=== PATIENT | female | born 1985 | race Caucasian/White ===

== ENCOUNTER 2016-06-28 14:11 | Emergency (ER) | payer OTHER ==
[~2016-06-28] VITALS: Ht 157.5 cm; Wt 64.0 kg
[~2016-06-28 14:11] MED LIST: ADVAIR 250/501 DISK IH; ATARAX,VISTARIL50 MG PO; AVENTYL,PAMELOR50 MG PO; AYGESTIN5 MG PO; AZOR 10/20 M1 TABLET PO; BACTRIM,SEPT1 TABLET PO; BENTYL10 MG PO; BUSPAR15 MG PO; BYSTOLIC10 MG PO; CARAFATE1 GM PO; CELEXA20 MG PO; CIPRO500 MG PO; CITALOPRAM HBR20 MG PO; CLEOCIN300 MG PO; CLONAZEPAM0.5 MG PO; CLONAZEPAM1 MG; CLONAZEPAM1 MG PO; CLONIDINE HCL0.1 MG PO; COLACE100 MG PO; CYCLOBENZAPRINE10 MG PO; DIAZEPAM2 MG PO; DILAUDID2 MG PO; EFFEXOR XR37.5 MG PO; FIORICET 50-301 EACH PO; FLEXERIL10 MG PO; FOLIC ACID0.8 MG PO; HYDRALAZINE HCL50 MG PO; HYDROCODON-ACE1 EAC2 PO; HYDROCODON-ACE1 EAC7 PO; IMITREX4 MG/0.5 M SC; IMITREX6 MG/0.53 SC; KEFLEX500 MG PO; KEPPRA1000 MG PO; KEPPRA500 MG PO; KEPPRA750 MG PO; KLONOPIN0.5 M1 PO; LEVETIRACETAM750 MG PO; LEVO-T125 MCG PO; LEVO-T150 MCG PO; LEVOTHYROXINE150 MCG PO; LODINE400 MG PO; LYRICA200 MG PO; MELOXICAM15 MG PO; MEPERIDINE HCL50 MG PO; NAPROXEN PO; NORCO 5/3251 TABLET PO; NORETHINDRONE AC5 MG PO; NORTRIPTYLINE H25 MG PO; ONDANSETRON ODT4 MG PO; ORTHO TRI-CY1 TABLE1 PO; OXYCODONE-APAP1 EAC6; OXYCODONE-APAP1 EACH PO; PAMELOR75 MG PO; PAROXETINE HCL10 MG PO; PERCOCET 5/31 TABLET PO; PERCOCET 7.51 TABLET PO; PRENATAL FORMU1 EAC3 PO; PRENATAL VITAM1 EA11 PO; PROAIR HFA8.5 GM IH; PROTONIX40 MG PO; PROZAC20 MG PO; REGLAN10 MG PO; RIZATRIPTAN10 MG PO; SKELAXIN800 MG PO; SYNTHROID125 MCG PO; SYNTHROID150 MCG PO; SYNTHROID300 MCG PO; TEKTURNA300 MG PO; TOPAMAX100 MG PO; TOPAMAX200 MG PO; TOPAMAX25 MG PO; TOPIRAMATE100 MG PO; TOPIRAMATE25 MG PO; TRAMADOL HCL50 MG PO; TRANSDERM-SCO1 PATCH TD; TRILEPTAL300 MG PO; TYLENOL EXTRA500 MG PO; TYLENOL REGULA325 MG PO; TYLENOL WITH C1 EACH PO; ULTRAM50 MG PO; VALIUM5 MG PO; VICODIN 5-3001 EACH PO; VICODIN,LORT1 TABLET PO; VIMPAT100 MG PO; VIMPAT150 MG PO; VIMPAT200 MG PO; ZOFRAN ODT4 MG PO; ZOFRAN ODT8 MG PO; ZOFRAN4 MG PO
[2016-06-28 15:34] LABS: ADD MIUA? YES; BILIRUBIN NEGATIVE; BLOOD NEGATIVE; COLOR YELLOW ((YELLOW)); GLUCOSE (STRIP) NEGATIVE; KETONES TRACE; LEUKOCYTES NEGATIVE; NITRITE POSITIVE; PH, URINE 5.5 (5-8); PROTEIN (STRIP) 30; SPECIFIC GRAVITY 1.039 (1.000-1.030); UROBILINOGEN 0.2 MG/DL (0.2-1.0)
[2016-06-28 15:43] LABS: AMPHETAMINE NEGATIVE (500 ng/mL); BARBITURATES NEGATIVE (200 ng/mL); BENZODIAZEPINES PRESUMPTIVE POSITIVE (150 ng/mL); COCAINE NEGATIVE (150 ng/mL); INTERNAL CONTROLS VALID? YES; METHADONE NEGATIVE (200 ng/mL); METHAMPHETAMINE NEGATIVE (500 ng/mL); OPIATES (MORPHINE) NEGATIVE (100 ng/mL); OXYCODONE NEGATIVE (100 ng/mL); PHENCYCLIDINE NEGATIVE (25 ng/mL); PROPOXYPHENE NEGATIVE (300 ng/mL); THC CANNABINOIDS NEGATIVE (50 ng/mL); TRICYCLIC ANTIDEPRESSANTS PRESUMPTIVE POSITIVE (300 ng/mL)
[2016-06-28 15:44] LABS: ADD MEDTOX COMMENT Y
[2016-06-28 16:02] LABS: EOSINOPHIL (%) 0.3 % (0-5); HEMATOCRIT 33.4 % (36.0-46.0); IMMATURE GRANULOCYTE (%) 0.2 % (0.0-0.7); IMMATURE GRANULOCYTE COUNT 0.1 K/uL; MCH 27.5 PG (29.0-34.0); MCHC 33.2 G/DL (30.0-36.0); MCV 82.7 FL (83-99); MONOCYTE (%) 7.3 % (3-12); MONOCYTE COUNT 0.5 K/uL (0-0.8); NEUTROPHIL (%) 76.5 % (45-76); RBC DIS.WIDTH-CV 14.7 % (11.8-14.6); RBC DIS.WIDTH-SD 43.1 % (39-53); RED BLOOD COUNT 4.04 M/uL (3.80-5.20)
[2016-06-28 16:04] LABS: WHITE BLOOD COUNT 6.5 K/uL (4.1-10.2)
[2016-06-28 16:06] LABS: BACTERIA 1+; EPITHELIAL CELLS 2+; RED BLOOD CELLS NONE SEEN /HPF (0-5); UCUL ADDED? NO; WHITE BLOOD CELLS RARE /HPF (0-5)
[2016-06-28 16:07] LABS: CASTS NONE SEEN /LPF; CRYSTALS NONE SEEN; MUCUS 2+
[2016-06-28 16:09] LABS: CHLORIDE 103 mEq/L (99-109); POTASSIUM 4.2 mEq/L (3.7-5.4); SODIUM 138 mEq/L (136-147)
[2016-06-28 16:12] LABS: GLUCOSE 102 mg/dL (70-99)
[2016-06-28 16:13] LABS: ANION GAP 11 MEQ/L (2-14); TOTAL BILIRUBIN 0.3 mg/dL (0.0-1.0)
[2016-06-28 16:14] LABS: SERUM ETHYL ALCOHOL < 10 mg/dL
[2016-06-28 16:15] LABS: ALKALINE PHOSPHATASE 63 IU/L (3-129); GFR ESTIMATE (CALCULATED) > 59 mL/min/
[2016-06-28 16:16] LABS: UREA NITROGEN (BUN) 24 mg/dL (9-23)
[2016-06-28 16:18] LABS: CREATINE KINASE 47 IU/L (1-294); TOTAL CK 47 IU/L (1-294)
[2016-06-28 16:26] LABS: QUANTITATIVE HCG < 4.0 MIU/ML
[2016-06-28 16:27] LABS: BENZODIAZEPINES QUANT VALUE 0 NG/ML
[2016-06-28 16:31] LABS: BENZODIAZEPINES, URINE SCREEN Negative (200 ng/mL)
[2016-06-28 17:03] LABS: PLAT.SUFFICIENCY ADEQUATE; USER ID BW1
[2016-06-28 17:04] LABS: MEAN PLAT.VOLUME 9.6 uM^3 (9.5-12.4)
[2016-06-28 17:05] VITALS: BP 120/91
[2016-06-28 18:00] LABS: PLATELET COUNT 310 K/uL (156-360)
== END 2016-06-28 17:05 | disposition left against medical advice (07) ==
LOC: EME 14:11
PROVIDERS: Emergency Medicine
DX: G40.909 Epilepsy, unspecified, not intractable, without status epilepticus (principal); Z88.6 Allergy status to analgesic agent
CPT/HCPCS: 80053; 81003; 82550; 82553; 84702; 84999; 85025; 93005; 99281; 99285; G0480; J2405

== ENCOUNTER 2016-09-17 16:29 | Emergency (ER) | payer BC ==
[~2016-09-17] VITALS: Ht 157.5 cm; Wt 56.8 kg
[2016-09-17 16:53] LABS: HEMATOCRIT 40.6 % (36.0-46.0); MCH 28.8 PG (29.0-34.0); MCHC 33.3 G/DL (30.0-36.0); MCV 86.8 FL (83-99); MEAN PLAT.VOLUME 9.8 uM^3 (9.5-12.4); PLATELET COUNT 443 K/uL (156-360); RBC DIS.WIDTH-CV 15.2 % (11.8-14.6); RBC DIS.WIDTH-SD 48.9 % (39-53); RED BLOOD COUNT 4.68 M/uL (3.80-5.20); WHITE BLOOD COUNT 7.7 K/uL (4.1-10.2)
[2016-09-17 17:04] LABS: CHLORIDE 102 mEq/L (99-109); POTASSIUM 4.2 mEq/L (3.7-5.4); SODIUM 135 mEq/L (136-147)
[2016-09-17 17:06] LABS: GLUCOSE 96 mg/dL (70-99)
[2016-09-17 17:07] LABS: ANION GAP 11 MEQ/L (2-14)
[2016-09-17 17:09] LABS: GFR ESTIMATE (CALCULATED) > 59 mL/min/
[2016-09-17 17:10] LABS: UREA NITROGEN (BUN) 25 mg/dL (9-23)
[2016-09-17 17:45] LABS: CREATINE KINASE 34 IU/L (1-294)
[2016-09-17 17:53] LABS: QUANTITATIVE HCG < 4.0 MIU/ML
[2016-09-17 20:56] LABS: ADD MIUA? YES; BILIRUBIN NEGATIVE; BLOOD NEGATIVE; COLOR YELLOW ((YELLOW)); GLUCOSE (STRIP) NEGATIVE; KETONES 5; LEUKOCYTES MODERATE; NITRITE POSITIVE; PROTEIN (STRIP) 100; SPECIFIC GRAVITY 1.029 (1.000-1.030)
[2016-09-17 21:05] LABS: AMPHETAMINE NEGATIVE (500 ng/mL); BARBITURATES NEGATIVE (200 ng/mL); BENZODIAZEPINES PRESUMPTIVE POSITIVE (150 ng/mL); COCAINE NEGATIVE (150 ng/mL); INTERNAL CONTROLS VALID? YES; METHADONE PRESUMPTIVE POSITIVE (200 ng/mL); METHAMPHETAMINE NEGATIVE (500 ng/mL); OPIATES (MORPHINE) NEGATIVE (100 ng/mL); OXYCODONE NEGATIVE (100 ng/mL); PHENCYCLIDINE NEGATIVE (25 ng/mL); PROPOXYPHENE NEGATIVE (300 ng/mL); THC CANNABINOIDS NEGATIVE (50 ng/mL); TRICYCLIC ANTIDEPRESSANTS NEGATIVE (300 ng/mL)
[2016-09-17 21:06] LABS: ADD MEDTOX COMMENT Y
[2016-09-17 21:11] LABS: BACTERIA 3+ /HPF; CALCIUM OXALATE CRYSTALS 3+ /HPF; EPITHELIAL CELLS 1+ /HPF; MUCUS 3+ /LPF; UCUL ADDED? YES; WHITE BLOOD CELLS 20-30 /HPF (0-5)
[2016-09-17 21:17] VITALS: BP 118/89
[2016-09-17] MEDS ORDERED: MACROBID100 MG PO (21:17)
[2016-09-17 21:33] LABS: BENZODIAZEPINES QUANT VALUE 0 NG/ML
[2016-09-17 21:34] LABS: BENZODIAZEPINES, URINE SCREEN Negative (200 ng/mL)
== END 2016-09-17 21:18 | disposition left against medical advice (07) ==
LOC: EME 16:29
DX: G40.909 Epilepsy, unspecified, not intractable, without status epilepticus (principal); N30.00 Acute cystitis without hematuria; J45.909 Unspecified asthma, uncomplicated; I10 Essential (primary) hypertension; K21.9 Gastro-esophageal reflux disease without esophagitis; E03.9 Hypothyroidism, unspecified
CPT/HCPCS: 70450; 72040; 72070; 80048; 81003; 82550; 84702; 84999; 85027; 87077; 87086; 87186; 90839; 99281; 99285; J2060; J2405; J7030

== ENCOUNTER 2016-09-29 09:11 | Emergency (ER) | payer SELFPAY ==
[~2016-09-29] VITALS: Ht 160 cm; Wt 52.0 kg
[~2016-09-29 09:11] MED LIST changes: +MACROBID100 MG PO
[2016-09-29 10:13] LABS: EOSINOPHIL (%) 1.2 % (0-5); EOSINOPHIL COUNT 0.1 K/uL (0-0.3); HEMATOCRIT 35.8 % (36.0-46.0); IMMATURE GRANULOCYTE (%) 0.2 % (0.0-0.7); INSTRUMENT ABS NEUTROPHIL CT 2.1 K/uL; LYMPHOCYTE COUNT 1.6 K/uL (1.0-2.8); MCH 29.3 PG (29.0-34.0); MCHC 34.1 G/DL (30.0-36.0); MCV 85.9 FL (83-99); MONOCYTE (%) 8.5 % (3-12); MONOCYTE COUNT 0.4 K/uL (0-0.8); NEUTROPHIL (%) 50.9 % (45-76); NEUTROPHIL COUNT 2.1 K/uL (1.8-6.4); RBC DIS.WIDTH-CV 14.3 % (11.8-14.6); RBC DIS.WIDTH-SD 44.9 % (39-53); RED BLOOD COUNT 4.17 M/uL (3.80-5.20)
[2016-09-29 10:14] LABS: WHITE BLOOD COUNT 4.1 K/uL (4.1-10.2)
[2016-09-29 10:17] LABS: CHLORIDE 101 mEq/L (99-109); POTASSIUM 3.9 mEq/L (3.7-5.4); SODIUM 136 mEq/L (136-147)
[2016-09-29 10:19] LABS: GLUCOSE 86 mg/dL (70-99)
[2016-09-29 10:20] LABS: ANION GAP 11 MEQ/L (2-14)
[2016-09-29 10:21] LABS: TOTAL BILIRUBIN 0.8 mg/dL (0.0-1.0)
[2016-09-29 10:22] LABS: ALKALINE PHOSPHATASE 75 IU/L (3-129)
[2016-09-29 10:23] LABS: GFR ESTIMATE (CALCULATED) > 59 mL/min/
[2016-09-29 10:24] LABS: UREA NITROGEN (BUN) 26 mg/dL (9-23)
[2016-09-29 10:35] LABS: QUANTITATIVE HCG < 4.0 MIU/ML
[2016-09-29 11:44] LABS: MEAN PLAT.VOLUME 9.6 uM^3 (9.5-12.4); PLAT.SUFFICIENCY ADEQUATE
[2016-09-29 11:45] LABS: PLATELET COUNT 241 K/uL (156-360)
[2016-09-29] MEDS ORDERED: CITRATE OF MAG296 ML PO (13:10)
[2016-09-29] MEDS ORDERED: TYLENOL WITH C1 EACH PO (13:10)
[2016-09-29 13:14] LABS: ADD MIUA? YES; BILIRUBIN NEGATIVE; BLOOD NEGATIVE; COLOR YELLOW ((YELLOW)); GLUCOSE (STRIP) NEGATIVE; KETONES 20; LEUKOCYTES NEGATIVE; NITRITE NEGATIVE; PROTEIN (STRIP) 30
[2016-09-29 13:21] LABS: BACTERIA RARE /HPF; CALCIUM OXALATE CRYSTALS 1+ /HPF; EPITHELIAL CELLS 2+ /HPF; MUCUS TRACE /LPF; RED BLOOD CELLS 15-20 /HPF (0-5); UCUL ADDED? NO
[2016-09-29 13:27] VITALS: BP 110/80
[2016-09-29 13:30] LABS: SPECIFIC GRAVITY 1.078 (1.000-1.030)
[2016-09-30] MEDS ORDERED: TYLENOL EXTRA500 MG PO (07:50)
== END 2016-09-29 13:46 | disposition home or self-care (01) ==
LOC: EME 09:11
PROVIDERS: Physician Assistant
DX: K59.00 Constipation, unspecified (principal); R10.9 Unspecified abdominal pain; F32.9 Major depressive disorder, single episode, unspecified; J45.909 Unspecified asthma, uncomplicated; I10 Essential (primary) hypertension; K21.9 Gastro-esophageal reflux disease without esophagitis; R56.9 Unspecified convulsions; E03.9 Hypothyroidism, unspecified
CPT/HCPCS: 74177; 80053; 81003; 84702; 85025; 90839; 99281; 99285; J2270; J3010; J7120

== ENCOUNTER 2016-09-30 06:24 | Emergency (ER) | payer SELFPAY ==
[~2016-09-30] VITALS: Ht 160 cm; Wt 53.8 kg
[~2016-09-30 06:24] MED LIST changes: +CITRATE OF MAG296 ML PO
[2016-09-30] MEDS ORDERED: TYLENOL EXTRA500 MG PO (07:50)
[2016-09-30 10:49] VITALS: BP 133/87
== END 2016-09-30 10:51 | disposition home or self-care (01) ==
LOC: EME 06:24
DX: F41.9 Anxiety disorder, unspecified (principal); F33.1 Major depressive disorder, recurrent, moderate
CPT/HCPCS: 90839; 99281; 99283

== ENCOUNTER 2016-10-04 09:39 | Inpatient (IN) | payer OTHER ==
[~2016-10-04] VITALS: Ht 157.5 cm; Wt 48.9 kg
[2016-10-04 11:43] LABS: HEMATOCRIT 36.4 % (36.0-46.0); MCH 29.4 PG (29.0-34.0); MCHC 33.5 G/DL (30.0-36.0); MCV 87.7 FL (83-99); MEAN PLAT.VOLUME 9.5 uM^3 (9.5-12.4); PLATELET COUNT 324 K/uL (156-360); RBC DIS.WIDTH-CV 14.1 % (11.8-14.6); RBC DIS.WIDTH-SD 45.7 % (39-53); RED BLOOD COUNT 4.15 M/uL (3.80-5.20); WHITE BLOOD COUNT 7.7 K/uL (4.1-10.2)
[2016-10-04 11:56] LABS: CHLORIDE 109 mEq/L (99-109); POTASSIUM 3.7 mEq/L (3.7-5.4); SODIUM 138 mEq/L (136-147)
[2016-10-04 11:57] LABS: GLUCOSE 73 mg/dL (70-99)
[2016-10-04 11:59] LABS: ANION GAP 10 MEQ/L (2-14)
[2016-10-04 12:01] LABS: GFR ESTIMATE (CALCULATED) > 59 mL/min/; SERUM ETHYL ALCOHOL < 10 mg/dL
[2016-10-04 12:03] LABS: UREA NITROGEN (BUN) 30 mg/dL (9-23)
[2016-10-04 12:04] LABS: SALICYLATE < 5.0 MG/DL (15-30)
[2016-10-04 12:12] LABS: QUANTITATIVE HCG < 4.0 MIU/ML
[2016-10-04] MEDS ORDERED: ZOFRAN ODT4 MG PO (12:13)
[2016-10-04] MEDS ORDERED: HYDROXYZINE HCL50 MG PO (12:13)
[2016-10-04] MEDS ORDERED: SYNTHROID150 MCG PO (12:13)
[2016-10-04] MEDS ORDERED: PROZAC40 MG PO (12:13)
[2016-10-04] MEDS ORDERED: TRAMADOL HCL50 MG PO (12:14)
[2016-10-04] MEDS ORDERED: CYANOCOBALAM1000 MCG PO (12:14)
[2016-10-04] MEDS ORDERED: CALCIUM 500 MG1 EACH PO (12:14)
[2016-10-04] MEDS ORDERED: NASONEX17 GM BOTH NARES (12:14)
[2016-10-04 14:38] VITALS: BP 127/85
[2016-10-04 14:43] VITALS: BP 127/85
[2016-10-05 07:45] VITALS: BP 116/80
[2016-10-05 15:24] VITALS: BP 119/91
[2016-10-06 07:34] VITALS: BP 113/82
[2016-10-06 15:10] LABS: AMPHETAMINES QUANT VALUE 0 NG/ML; BARBITUATES QUANT VALUE 0 NG/ML; BENZODIAZEPINES QUANT VALUE 0 NG/ML; BENZODIAZEPINES, URINE SCREEN Negative (200 ng/mL); MARIJUANA QUANT VALUE 0 NG/ML; OPIATES QUANTITATIVE VALUE 0 NG/ML; PHENCYCLIDINE QUANT VALUE 0 NG/ML
[2016-10-06 16:08] VITALS: BP 112/79
[2016-10-07 08:06] VITALS: BP 101/76
[2016-10-07 16:15] VITALS: BP 123/89
[2016-10-08 07:54] VITALS: BP 1015/75
[2016-10-08 15:49] VITALS: BP 100/77
[2016-10-09 07:40] VITALS: BP 104/58
[2016-10-09 15:28] VITALS: BP 104/72
[2016-10-10 07:45] VITALS: BP 102/62
[2016-10-10] MEDS ORDERED: EFFEXOR50 MG PO (11:34)
[2016-10-10] MEDS ORDERED: METHYLPHENIDATE5 MG PO (11:34)
[2016-10-10] MEDS ORDERED: HYDROXYZINE PAM25 MG PO (11:34)
[2016-10-10] MEDS ORDERED: LEVETIRACETAM500 MG PO (11:34)
[2016-10-10] MEDS ORDERED: SYNTHROID175 MCG PO (11:34)
[2016-10-10] MEDS ORDERED: TRAMADOL HCL50 MG PO (11:34)
[2016-10-10] MEDS ORDERED: ARIPIPRAZOLE5 MG PO (11:34)
== END 2016-10-10 14:27 | disposition home or self-care (01) | DRG 885 ==
LOC: EME 09:39 → 1WEST 11:33 → EDOF 11:33 → 1WEST 14:27
PROVIDERS: Psychiatry & Neurology Psychiatry
DX: F33.2 Major depressive disorder, recurrent severe without psychotic features (principal); R45.851 Suicidal ideations; J45.909 Unspecified asthma, uncomplicated; G89.29 Other chronic pain; I10 Essential (primary) hypertension; E03.9 Hypothyroidism, unspecified; G43.909 Migraine, unspecified, not intractable, without status migrainosus; K21.9 Gastro-esophageal reflux disease without esophagitis; G47.00 Insomnia, unspecified; G40.909 Epilepsy, unspecified, not intractable, without status epilepticus; F41.9 Anxiety disorder, unspecified; N80.9 Endometriosis, unspecified; N83.209 Unspecified ovarian cyst, unspecified side; Z91.5 Personal history of self-harm; Z91.14 Patient's other noncompliance with medication regimen; Z98.84 Bariatric surgery status; Z81.8 Family history of other mental and behavioral disorders
CPT/HCPCS: 80048; 80306 90; 82607; 82746; 84439; 84443; 84702; 85027; 90839; 97150 GO; 97165 GO; 99281; 99285; G0480; Q0177

== ENCOUNTER 2016-10-14 07:14 | Emergency (ER) | payer SELFPAY ==
[~2016-10-14] VITALS: Ht 157.5 cm; Wt 50.3 kg
[~2016-10-14 07:14] MED LIST changes: +ARIPIPRAZOLE5 MG PO; +CALCIUM 500 MG1 EACH PO; +CYANOCOBALAM1000 MCG PO; +EFFEXOR50 MG PO; +HYDROXYZINE HCL50 MG PO; +HYDROXYZINE PAM25 MG PO; +LEVETIRACETAM500 MG PO; +METHYLPHENIDATE5 MG PO; +NASONEX17 GM BOTH NARES; +PROZAC40 MG PO; +SYNTHROID175 MCG PO
[2016-10-14 08:05] LABS: HEMATOCRIT 33.8 % (36.0-46.0); MCH 29.9 PG (29.0-34.0); MCHC 33.7 G/DL (30.0-36.0); MCV 88.7 FL (83-99); RBC DIS.WIDTH-CV 13.6 % (11.8-14.6); RBC DIS.WIDTH-SD 43.7 % (39-53); RED BLOOD COUNT 3.81 M/uL (3.80-5.20); WHITE BLOOD COUNT 6.3 K/uL (4.1-10.2)
[2016-10-14 08:12] LABS: CHLORIDE 112 mEq/L (99-109); POTASSIUM 4.1 mEq/L (3.7-5.4); SODIUM 143 mEq/L (136-147)
[2016-10-14 08:14] LABS: GLUCOSE 82 mg/dL (70-99)
[2016-10-14 08:16] LABS: ANION GAP 9 MEQ/L (2-14); TOTAL BILIRUBIN 0.4 mg/dL (0.0-1.0)
[2016-10-14 08:18] LABS: ALKALINE PHOSPHATASE 54 IU/L (3-129); GFR ESTIMATE (CALCULATED) > 59 mL/min/
[2016-10-14 08:19] LABS: UREA NITROGEN (BUN) 21 mg/dL (9-23)
[2016-10-14 08:21] LABS: CREATINE KINASE 52 IU/L (1-294); TOTAL CK 52 IU/L (1-294)
[2016-10-14 08:27] LABS: QUANTITATIVE HCG < 4.0 MIU/ML
[2016-10-14 08:28] LABS: CK-MB 0.5 ng/mL (0.0-4.9)
[2016-10-14 09:24] LABS: MEAN PLAT.VOLUME 9.5 uM^3 (9.5-12.4)
[2016-10-14 09:26] LABS: PLATELET COUNT 204 K/uL (156-360)
[2016-10-14 10:00] LABS: ADD MIUA? YES; BILIRUBIN NEGATIVE; BLOOD NEGATIVE; COLOR YELLOW ((YELLOW)); GLUCOSE (STRIP) NEGATIVE; KETONES NEGATIVE; LEUKOCYTES TRACE; NITRITE NEGATIVE; PROTEIN (STRIP) 30; SPECIFIC GRAVITY 1.023 (1.000-1.030); UROBILINOGEN 0.2 MG/DL (0.2-1.0)
[2016-10-14 10:09] LABS: BACTERIA RARE /HPF; CALCIUM OXALATE CRYSTALS 4+ /HPF; EPITHELIAL CELLS RARE /HPF; MUCUS TRACE /LPF; RED BLOOD CELLS 15-20 /HPF (0-5)
[2016-10-14 10:37] LABS: ADD MEDTOX COMMENT Y; AMPHETAMINE NEGATIVE (500 ng/mL); BARBITURATES NEGATIVE (200 ng/mL); BENZODIAZEPINES PRESUMPTIVE POSITIVE (150 ng/mL); COCAINE NEGATIVE (150 ng/mL); INTERNAL CONTROLS VALID? YES; METHADONE NEGATIVE (200 ng/mL); METHAMPHETAMINE NEGATIVE (500 ng/mL); OPIATES (MORPHINE) NEGATIVE (100 ng/mL); OXYCODONE NEGATIVE (100 ng/mL); PHENCYCLIDINE NEGATIVE (25 ng/mL); PROPOXYPHENE NEGATIVE (300 ng/mL); THC CANNABINOIDS NEGATIVE (50 ng/mL); TRICYCLIC ANTIDEPRESSANTS NEGATIVE (300 ng/mL)
[2016-10-14] MEDS ORDERED: MACROBID100 MG PO (10:41)
[2016-10-14] MEDS ORDERED: ZOFRAN ODT4 MG PO (10:53)
[2016-10-14 11:31] VITALS: BP 114/83
[2016-10-14 11:41] LABS: BENZODIAZEPINES, URINE SCREEN POSITIVE (200 ng/mL)
[2016-10-14] MEDS ORDERED: ULTRAM50 MG PO (22:03)
[2016-10-15] MEDS ORDERED: ABILIFY5 MG PO (12:13)
[2016-10-15] MEDS ORDERED: LEVOTHYROXINE150 MCG PO (12:14)
[2016-10-15] MEDS ORDERED: RITALIN5 MG PO (12:16)
== END 2016-10-14 11:33 | disposition home or self-care (01) ==
LOC: EME → EDBD 07:14 → EME 07:14
PROVIDERS: Nurse Practitioner Family
DX: G40.901 Epilepsy, unspecified, not intractable, with status epilepticus (principal); N39.0 Urinary tract infection, site not specified; Y09 Assault by unspecified means; R51 Headache; M54.9 Dorsalgia, unspecified; F41.9 Anxiety disorder, unspecified; Z98.84 Bariatric surgery status; Z86.19 Personal history of other infectious and parasitic diseases; Z91.128 Patient's intentional underdosing of medication regimen for other reason; I10 Essential (primary) hypertension; G89.29 Other chronic pain; J45.909 Unspecified asthma, uncomplicated
CPT/HCPCS: 70450; 80053; 81003; 82550; 82553; 84443; 84702; 84702 90; 84999; 85027; 87086; 90832; 99281; 99285; G0480; J2060

== ENCOUNTER 2016-10-14 18:35 | Emergency (ER) | payer SELFPAY ==
[~2016-10-14] VITALS: Ht 157.5 cm; Wt 50.2 kg
[2016-10-14] MEDS ORDERED: ULTRAM50 MG PO (22:03)
[2016-10-14 22:58] LABS: HEMATOCRIT 31.9 % (36.0-46.0); MCH 29.5 PG (29.0-34.0); MCHC 32.6 G/DL (30.0-36.0); MCV 90.6 FL (83-99); MEAN PLAT.VOLUME 9.2 uM^3 (9.5-12.4); PLATELET COUNT 197 K/uL (156-360); RBC DIS.WIDTH-CV 13.8 % (11.8-14.6); RBC DIS.WIDTH-SD 45.4 % (39-53); RED BLOOD COUNT 3.52 M/uL (3.80-5.20); WHITE BLOOD COUNT 7.7 K/uL (4.1-10.2)
[2016-10-14 23:05] LABS: CHLORIDE 114 mEq/L (99-109); POTASSIUM 3.6 mEq/L (3.7-5.4); SODIUM 145 mEq/L (136-147)
[2016-10-14 23:08] LABS: GLUCOSE 83 mg/dL (70-99)
[2016-10-14 23:09] LABS: ANION GAP 8 MEQ/L (2-14)
[2016-10-14 23:10] LABS: TOTAL BILIRUBIN 0.4 mg/dL (0.0-1.0)
[2016-10-14 23:11] LABS: ALKALINE PHOSPHATASE 51 IU/L (3-129); SERUM ETHYL ALCOHOL < 10 mg/dL
[2016-10-14 23:12] LABS: GFR ESTIMATE (CALCULATED) > 59 mL/min/
[2016-10-14 23:13] LABS: UREA NITROGEN (BUN) 19 mg/dL (9-23)
[2016-10-15 10:09] LABS: ADD MIUA? YES; BILIRUBIN NEGATIVE; BLOOD NEGATIVE; COLOR YELLOW ((YELLOW)); GLUCOSE (STRIP) NEGATIVE; KETONES NEGATIVE; LEUKOCYTES TRACE; NITRITE NEGATIVE; PROTEIN (STRIP) NEGATIVE; SPECIFIC GRAVITY 1.016 (1.000-1.030); UROBILINOGEN 0.2 MG/DL (0.2-1.0)
[2016-10-15 10:20] LABS: AMPHETAMINE NEGATIVE (500 ng/mL); COCAINE NEGATIVE (150 ng/mL); METHAMPHETAMINE NEGATIVE (500 ng/mL); OPIATES (MORPHINE) NEGATIVE (100 ng/mL); PHENCYCLIDINE NEGATIVE (25 ng/mL); THC CANNABINOIDS NEGATIVE (50 ng/mL)
[2016-10-15 10:21] LABS: ADD MEDTOX COMMENT Y; BARBITURATES NEGATIVE (200 ng/mL); BENZODIAZEPINES PRESUMPTIVE POSITIVE (150 ng/mL); INTERNAL CONTROLS VALID? YES; METHADONE NEGATIVE (200 ng/mL); OXYCODONE NEGATIVE (100 ng/mL); PROPOXYPHENE NEGATIVE (300 ng/mL); TRICYCLIC ANTIDEPRESSANTS NEGATIVE (300 ng/mL)
[2016-10-15 10:28] LABS: BACTERIA RARE /HPF; CALCIUM OXALATE CRYSTALS 4+ /HPF; EPITHELIAL CELLS RARE /HPF; MUCUS 4+ /LPF; RED BLOOD CELLS TNTC /HPF (0-5); WHITE BLOOD CELLS 20-30 /HPF (0-5)
[2016-10-15 10:57] LABS: BENZODIAZEPINES, URINE SCREEN POSITIVE (200 ng/mL)
[2016-10-15] MEDS ORDERED: ABILIFY5 MG PO (12:13)
[2016-10-15] MEDS ORDERED: LEVOTHYROXINE150 MCG PO (12:14)
[2016-10-15] MEDS ORDERED: RITALIN5 MG PO (12:16)
[2016-10-15 21:45] VITALS: BP 139/90
== END 2016-10-15 21:48 ==
LOC: EME 18:35 → EDOF 10-15 12:56 → EME 10-15 12:56
PROVIDERS: Emergency Medicine
DX: S30.0XXA Contusion of lower back and pelvis, initial encounter (principal); F19.10 Other psychoactive substance abuse, uncomplicated; R45.851 Suicidal ideations; Y04.8XXA Assault by other bodily force, initial encounter; Y07.12 Biological mother, perpetrator of maltreatment and neglect; Y92.89 Other specified places as the place of occurrence of the external cause; F31.9 Bipolar disorder, unspecified; J45.909 Unspecified asthma, uncomplicated; I10 Essential (primary) hypertension; G40.909 Epilepsy, unspecified, not intractable, without status epilepticus; Z98.84 Bariatric surgery status; Z88.6 Allergy status to analgesic agent; Z88.5 Allergy status to narcotic agent; Z91.030 Bee allergy status
CPT/HCPCS: 72100; 80053; 81003; 84999; 85027; 90837; 99281; 99285; G0480; J1630; J7030; Q0177

== ENCOUNTER 2016-10-23 09:23 | Inpatient (IN) | payer OTHER ==
[~2016-10-23] VITALS: Ht 160 cm; Wt 52.1 kg
[~2016-10-23 09:23] MED LIST changes: +ABILIFY5 MG PO; +RITALIN5 MG PO
[2016-10-23] MEDS ORDERED: WELLBUTRIN XL150 MG PO (11:26)
[2016-10-23 11:32] LABS: ADD MIUA? YES; BILIRUBIN NEGATIVE; BLOOD NEGATIVE; COLOR AMBER ((YELLOW)); GLUCOSE (STRIP) >=500; KETONES NEGATIVE; LEUKOCYTES NEGATIVE; NITRITE NEGATIVE; PROTEIN (STRIP) NEGATIVE; UROBILINOGEN 0.2 MG/DL (0.2-1.0)
[2016-10-23 11:49] LABS: AMPHETAMINE NEGATIVE (500 ng/mL); BARBITURATES NEGATIVE (200 ng/mL); BENZODIAZEPINES NEGATIVE (150 ng/mL); COCAINE NEGATIVE (150 ng/mL); INTERNAL CONTROLS VALID? YES; METHADONE NEGATIVE (200 ng/mL); METHAMPHETAMINE NEGATIVE (500 ng/mL); OPIATES (MORPHINE) NEGATIVE (100 ng/mL); OXYCODONE NEGATIVE (100 ng/mL); PHENCYCLIDINE NEGATIVE (25 ng/mL); PROPOXYPHENE NEGATIVE (300 ng/mL); THC CANNABINOIDS NEGATIVE (50 ng/mL); TRICYCLIC ANTIDEPRESSANTS NEGATIVE (300 ng/mL)
[2016-10-23 11:53] LABS: BACTERIA RARE /HPF; CALCIUM OXALATE CRYSTALS 2+ /HPF; EPITHELIAL CELLS 1+ /HPF; MUCUS TRACE /LPF; UNCLASSIFIED CRYSTALS 4+ /HPF; WHITE BLOOD CELLS 0-5 /HPF (0-5)
[2016-10-23 11:56] LABS: HEMATOCRIT 34.4 % (36.0-46.0); MCH 30.2 PG (29.0-34.0); MCV 88.9 FL (83-99); MEAN PLAT.VOLUME 9.3 uM^3 (9.5-12.4); PLATELET COUNT 241 K/uL (156-360); RBC DIS.WIDTH-CV 12.9 % (11.8-14.6); RBC DIS.WIDTH-SD 41.9 % (39-53); RED BLOOD COUNT 3.87 M/uL (3.80-5.20)
[2016-10-23 11:57] LABS: WHITE BLOOD COUNT 5.2 K/uL (4.1-10.2)
[2016-10-23 13:04] LABS: ANION GAP 8 MEQ/L (2-14); CHLORIDE 109 MEQ/L (99-109); POTASSIUM 3.7 MEQ/L (3.7-5.4); SAMPLE HEMOLYSIS CHECK 0; SAMPLE ICTERIC CHECK 0; SAMPLE LIPEMIA CHECK 0; SODIUM 141 MEQ/L (136-147); TOTAL BILIRUBIN 0.4 MG/DL (0.0-1.0)
[2016-10-23 13:10] LABS: ALKALINE PHOSPHATASE 58 IU/L (3-129); GFR ESTIMATE (CALCULATED) > 59 mL/min/; GLUCOSE 81 mg/dL (70-99); SERUM ETHYL ALCOHOL 11 mg/dL; UREA NITROGEN (BUN) 20 mg/dL (9-23)
[2016-10-23] MEDS ORDERED: RITALIN10 MG PO (16:27)
[2016-10-23] MEDS ORDERED: ZOFRAN ODT8 MG PO (16:28)
[2016-10-23] MEDS ORDERED: TYLENOL EXTRA500 MG PO (16:29)
[2016-10-23] MEDS ORDERED: LEVO-T175 MCG PO (16:29)
[2016-10-23] MEDS ORDERED: AMBIEN10 MG PO (16:30)
[2016-10-23 18:18] VITALS: BP 109/80
[2016-10-24 07:48] VITALS: BP 111/72
[2016-10-24 15:24] VITALS: BP 101/63
[2016-10-25 07:35] VITALS: BP 109/69
[2016-10-25 15:40] VITALS: BP 115/71
[2016-10-26 07:22] VITALS: BP 91/60
[2016-10-26 15:25] VITALS: BP 108/71
[2016-10-27 07:39] VITALS: BP 102/69
[2016-10-27] MEDS ORDERED: WELLBUTRIN XL150 MG PO (10:20)
[2016-10-27] MEDS ORDERED: ARIPIPRAZOLE10 MG PO (10:20)
[2016-10-27] MEDS ORDERED: KEPPRA1000 MG PO (10:20)
[2016-10-27 15:11] VITALS: BP 112/76
== END 2016-10-27 17:39 | disposition home or self-care (01) | DRG 885 ==
LOC: EME 09:23 → 1WEST 14:55 → EDOF 14:55 → 1WEST 17:26
PROVIDERS: Emergency Medicine
DX: F33.1 Major depressive disorder, recurrent, moderate (principal); F60.9 Personality disorder, unspecified; F13.10 Sedative, hypnotic or anxiolytic abuse, uncomplicated; Z91.14 Patient's other noncompliance with medication regimen
CPT/HCPCS: 80053; 81003; 85027; 90839; 97165 GO; 99281; 99285; G0480; Q0177

== ENCOUNTER 2016-11-10 18:57 | Emergency (ER) | payer OTHER ==
[~2016-11-10] VITALS: Ht 157.5 cm; Wt 60.6 kg
[~2016-11-10 18:57] MED LIST changes: +AMBIEN10 MG PO; +ARIPIPRAZOLE10 MG PO; +LEVO-T175 MCG PO; +RITALIN10 MG PO; +WELLBUTRIN XL150 MG PO
[2016-11-10 21:06] LABS: CHLORIDE 111 mEq/L (99-109); POTASSIUM 4.3 mEq/L (3.7-5.4); SODIUM 144 mEq/L (136-147)
[2016-11-10 21:07] LABS: GLUCOSE 86 mg/dL (70-99)
[2016-11-10 21:09] LABS: ANION GAP 8 MEQ/L (2-14)
[2016-11-10 21:11] LABS: GFR ESTIMATE (CALCULATED) > 59 mL/min/
[2016-11-10 21:12] LABS: UREA NITROGEN (BUN) 19 mg/dL (9-23)
[2016-11-10 21:57] VITALS: BP 104/73
== END 2016-11-10 21:58 | disposition home or self-care (01) ==
LOC: EME → EDBD 18:57 → EME 18:57
PROVIDERS: Emergency Medicine
DX: G40.909 Epilepsy, unspecified, not intractable, without status epilepticus (principal); Z91.14 Patient's other noncompliance with medication regimen; I10 Essential (primary) hypertension; K21.9 Gastro-esophageal reflux disease without esophagitis
CPT/HCPCS: 80048; 99281; 99284; J7030

== ENCOUNTER 2016-11-13 07:18 | Emergency (ER) | payer OTHER ==
[~2016-11-13] VITALS: Ht 160 cm; Wt 58.6 kg
[2016-11-13] MEDS ORDERED: RITALIN10 MG PO (07:54)
[2016-11-13] MEDS ORDERED: ULTRAM50 MG PO (07:55)
[2016-11-13] MEDS ORDERED: ABILIFY10 MG PO (07:56)
[2016-11-13] MEDS ORDERED: BUSPIRONE HCL5 MG PO (07:56)
[2016-11-13 08:14] LABS: EOSINOPHIL (%) 0.9 % (0-5); HEMATOCRIT 32.4 % (36.0-46.0); IMMATURE GRANULOCYTE (%) 0.2 % (0.0-0.7); INSTRUMENT ABS NEUTROPHIL CT 2.6 K/uL; LYMPHOCYTE COUNT 1.4 K/uL (1.0-2.8); MCH 28.3 PG (29.0-34.0); MCHC 31.5 G/DL (30.0-36.0); MCV 89.8 FL (83-99); MEAN PLAT.VOLUME 9.5 uM^3 (9.5-12.4); MONOCYTE (%) 7.1 % (3-12); MONOCYTE COUNT 0.3 K/uL (0-0.8); NEUTROPHIL (%) 59.4 % (45-76); NEUTROPHIL COUNT 2.6 K/uL (1.8-6.4); PLATELET COUNT 245 K/uL (156-360); RBC DIS.WIDTH-CV 11.7 % (11.8-14.6); RBC DIS.WIDTH-SD 38.3 % (39-53); RED BLOOD COUNT 3.61 M/uL (3.80-5.20); WHITE BLOOD COUNT 4.4 K/uL (4.1-10.2)
[2016-11-13 08:51] LABS: QUANTITATIVE HCG < 4.0 MIU/ML
[2016-11-13 09:16] LABS: ALKALINE PHOSPHATASE 55 IU/L (3-129); ANION GAP 12 MEQ/L (2-14); CHLORIDE 111 MEQ/L (99-109); DIRECT BILIRUBIN 0.1 mg/dL (0.0-0.3); GFR ESTIMATE (CALCULATED) > 59 mL/min/; POTASSIUM 3.5 MEQ/L (3.7-5.4); SALICYLATE < 3.0 MG/DL (15-30); SAMPLE HEMOLYSIS CHECK 0; SAMPLE ICTERIC CHECK 0; SAMPLE LIPEMIA CHECK 0; SERUM ETHYL ALCOHOL < 10 mg/dL; SODIUM 144 MEQ/L (136-147); TOTAL BILIRUBIN 0.4 MG/DL (0.0-1.0); UREA NITROGEN (BUN) 13 mg/dL (9-23)
[2016-11-13 09:17] LABS: GLUCOSE 159 mg/dL (70-99)
[2016-11-13 09:24] LABS: ADD MIUA? NO; BILIRUBIN NEGATIVE; BLOOD NEGATIVE; COLOR YELLOW ((YELLOW)); GLUCOSE (STRIP) 50; KETONES NEGATIVE; LEUKOCYTES NEGATIVE; NITRITE NEGATIVE; PROTEIN (STRIP) NEGATIVE; SPECIFIC GRAVITY 1.017 (1.000-1.030); UROBILINOGEN 0.2 MG/DL (0.2-1.0)
[2016-11-13 09:33] LABS: AMPHETAMINE NEGATIVE (500 ng/mL); BARBITURATES NEGATIVE (200 ng/mL); BENZODIAZEPINES NEGATIVE (150 ng/mL); COCAINE NEGATIVE (150 ng/mL); INTERNAL CONTROLS VALID? YES; METHADONE NEGATIVE (200 ng/mL); METHAMPHETAMINE NEGATIVE (500 ng/mL); OPIATES (MORPHINE) NEGATIVE (100 ng/mL); OXYCODONE NEGATIVE (100 ng/mL); PHENCYCLIDINE NEGATIVE (25 ng/mL); PROPOXYPHENE NEGATIVE (300 ng/mL); THC CANNABINOIDS NEGATIVE (50 ng/mL); TRICYCLIC ANTIDEPRESSANTS NEGATIVE (300 ng/mL)
[2016-11-13 12:06] VITALS: BP 120/74
== END 2016-11-13 12:11 | disposition home or self-care (01) ==
LOC: EME 07:18
PROVIDERS: Emergency Medicine
DX: F41.9 Anxiety disorder, unspecified (principal); F33.1 Major depressive disorder, recurrent, moderate; T50.992A Poisoning by other drugs, medicaments and biological substances, intentional self-harm, initial encounter; F13.10 Sedative, hypnotic or anxiolytic abuse, uncomplicated; F60.3 Borderline personality disorder; Z76.5 Malingerer [conscious simulation]; I10 Essential (primary) hypertension; K21.9 Gastro-esophageal reflux disease without esophagitis; J45.909 Unspecified asthma, uncomplicated; E03.9 Hypothyroidism, unspecified
CPT/HCPCS: 80048; 80076; 81003; 84702; 85025; 90839; 93005; 99281; 99285; G0480